=== PATIENT | female | born 1990 | race Hispanic/Latino ===

== ENCOUNTER 2018-10-24 01:29 | Emergency (ER) | payer SELFPAY ==
[2018-10-24] MEDS ORDERED: Ketorolac Tromethamine 30 MG/ML VIAL ONE (02:30)
--- NOTE | 2018-10-24 07:39 | RAD ---
3 views left hand: 10/24/2018 COMPARISON: None HISTORY: Fall, injury, trauma, pain FINDINGS: Assessment of the fourth distal phalanx is limited secondary to artifact associated with th e fingernail. There is an acute fracture involving the distal aspect of the fourth middle phalanx with mild volar angulation. There is mild impaction with no intra-articular extension or dislocation. IMPRESSION: Fracture of the distal aspect of the fourth middle phalanx.
== END 2018-10-24 03:17 | disposition home or self-care (01) ==
LOC: ERS 01:29
DX: S62.665A Nondisplaced fracture of distal phalanx of left ring finger, initial encounter for closed fracture (principal); F32.9 Major depressive disorder, single episode, unspecified; W01.0XXA Fall on same level from slipping, tripping and stumbling without subsequent striking against object, initial encounter
CPT/HCPCS: 26750; 96372; J1885